=== PATIENT | male | born 1970 | race Caucasian/White ===

== ENCOUNTER 2021-02-09 21:33 | Inpatient (IN) | payer OTHER, MEDICAID ==
[~2021-02-09] VITALS: Ht 198.1 cm; Wt 158.8 kg
--- NOTE | ~2021-02-09 | EKG ---
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 : 1970 Requested By: Kristofer Alfaro Order Number: [id number] Reading MD: Measurements Intervals [place] Rate: 145 P: [place]: QRS: 53 QRSD: 116 T: -66 QT: 338 QTc: 525 Interpretive Statements Atrial fibrillation Nonspecific intraventricular conduction delay Borderline low voltage, extremity leads Borderline ST depression, diffuse leads Compared to ECG 02/09/2021 21:47:05 ST (T wave) deviation now present Sinus tachycardia no longer present Ventricular premature complex(es) no longer present [email or web address] By: 3 3 Epiphany Epiphany, /JOHANA
--- NOTE | ~2021-02-09 | EMS ---
[place] [address] EMS Patient Care Report Name: NEGAR BIRCH Room: [place] [address] ADM IN .R.#: [id number] Admission: 02/09/21 Attend Phys: Alyssa Quijano MD Discharge: Date of : 72 Report #: [id number] THIS REPORT FOR: //name// Report Transmitted: 02/09/2021 22:15 EMS Care Summary [facility] Incident [id number] @ 02/09/2021 20:39 Incident Location [address] [place] [address] Patient NEGAR BICRH Male, 50 Years 1970 Patient Address [address] [place] [address] Patient History Alcohol Abuse, Patient Allergies No known allergies, Patient Medications None Reported, Chief Complaint Sepsis Disposition Transported Lights/[place] Dispatch Reason Sick Person Transported To [facility] Narrative [facility] was dispatched for a 50 year old male conscious and breathing possibly having a stroke. Med 1 responds to the [place] [address] EMS Patient Care Report Name: NEGAR BIRCH Room: [place] [address] ADM IN M.Josephine.#: [id number] Admission: 02/09/21 Attend Phys: Alyssa Quijano MD Discharge: Date of : 72 Report #: [id number] sirens. Arrival at the scene EMS personnel dismount the ambulance with the stretcher, medical bag and monitor. Patient is located inside the residence sitting down in bed. Patient acknowledges EMS presence is GCS 14 AAOx3. Patient has a patent airway is tachypneic with strong irregular radial pulses. Skin is pale warm and dry. Patient is confused and hallucinating. VS and Glucose check are obtained and Hypotension is noted. Glucose is 110mg/dL. Family advises that the last known well of the patient was approximately two days ago and that he is noted to have increased confusion and weakness. Family and patient deny any recent trauma or falls. Patient is assisted to the stair chair and secured with seatbelts. Patient is wheeled outside to the stretcher and secured in the fowlers position using seatbelts and rails. Patient is wheeled into the ambulance and placed on the monitor to obtain VS and 12 lead ECG. 12 lead shows Atrial Fibrillation with RVR with multiple PVC's. Patient is placed on Oxygen via NRB at 12LPM. ETCO2 is obtained and results are 15mmhg. IV access is established in the left antecubital region using a 18g IV and secured with a venigard. 1000ML NS is initiated for sepsis. Patient is noted to be Jaundiced with Sclera also noted to be jaundiced. Transport is initiated to [facility] emergent using lights and sirens with a sepsis alert to the receiving facility. Assessment is conducted. Patient is GCS 14, Alert and oriented to person, time and able to conduct simple math. Patient advises that his dog is inside the ambulance and not to let the dog out of the ambulance. Patient has a patent airway and is tachypneic with RR of 42 ETCO2 of 17mmhg and tachycardia noted AFIB with RVR and PVC's. Skin is Jaundiced, pale cool and dry. HEENT are WNL. Pupils are PERRL. Trachea is midline with no JVD. Chest wall is stable and intact with symmetrical rise and fall. Lung sounds are clear and equal. Abdomen is soft and nontender with no distention or rigidity noted. Pelvis is stable and intact. CMSX4 present. Stroke scale conducted is negative. Arrival at the receiving facility patient is offloaded and taken to ED room 1. Patient is moved from the stretcher to the bed using the linen. RN is given report and transfer of care is completed. Patient is unable to sign due to AMS and weakness. Med 1 returns to service. Initial Vitals @20:46P: 114,R: 38,BP: 98/56,Pain: 0/10,GCS: 14,Glucose: 110,SpO2: 90,Revised Trauma: 11, @21:07P: 111,R: 42,BP: 146/86,GCS: 14,EtCO2: 16,SpO2: 97,Revised Trauma: 11, @21:16P: 111,R: 41,BP: 125/69,Pain: 0/10,GCS: 14,EtCO2: 15,Revised Trauma: 11,MT Suspected: false @20:59P: 115,R: 48,BP: 129/69,GCS: 14,EtCO2: 16,SpO2: 95,Revised Trauma: 11,MT Suspected: false Impression [address] [address] EMS Patient Care Report Name: NEGAR BIRCH Room: [place] [address] ADM IN ..#: [id number] Admission: 02/09/21 Attend Phys: Alyssa Quijano MD Discharge: Date of : 72 Report #: [id number] Sepsis/Septicemia Procedures @20:50Oxygen FlowRate: 12 Device: Non Re-breather Mask (NRB) Response: UnchangedSucceeded@20:50Normal Saline (.9% NaCl) 1000cc (18 ga) Site: Antecubital-LeftResponse: UnchangedSucceeded@20:55ALS AssessmentResponse: UnchangedSucceeded@21:10Sepsis NotificationResponse: Unchanged@21:0012-Lead ECGResponse: UnchangedSucceeded Timeline 20:39,Call Received 20:39,Dispatched 20:41,En Route 20:44,Initial Responder On Scene 20:44,On Scene 20:46,At Patient 20:46,BP: 98/56 M,PULSE: 114,RR: 38 R,SPO2: 90 Ox,ETCO2: ,B,PAIN: 0,GCS: 14, 20:50,Oxygen FlowRate: 12 Device: Non Re-breather Mask (NRB) Response: UnchangedSucceeded, 20:50,Normal Saline (.9% NaCl) 1000cc 18 ga Site: Antecubital-Left,Response: UnchangedSucceeded, 20:55,ALS Assessment,Response: UnchangedSucceeded, 20:59,BP: 129/69 M,PULSE: 115,RR: 48 R,SPO2: 95 Ox,ETCO2: 16 ,BG: ,PAIN: ,GCS: 14, 21:00,12-Lead ECG,Response: UnchangedSucceeded, 21:02,Depart Scene 21:07,BP: 146/86 M,PULSE: 111,RR: 42 R,SPO2: 97 Ox,ETCO2: 16 ,BG: ,PAIN: ,GCS: 14, 21:10,Sepsis Notification,Response: Unchanged 21:16,BP: 125/69 M,PULSE: 111,RR: 41 R,SPO2: Ox,ETCO2: 15 ,BG: ,PAIN: 0,GCS: 14, 21:25,At Destination 21:35,Transfer Patient 22:03,Call Closed 22:03,In District Disclaimer v1.1 Copyright 2020 [employer] This EMS Care Summary contains data elements from the applicable legal record (which may be displayed differently). It is designed to provide pertinent information for the following purposes: continuity of care, clinical quality, and state data reporting. The complete legal record is available to ED staff and administrators of the receiving hospital in [employer]'s Patient Tracker. All data is provided "as is."
--- NOTE | ~2021-02-09 | EMS ---
[place] [address] EMS Patient Care Report Name: NEGAR BIRCH Room: [place] [address] ADM IN .R.#: [id number] Admission: 02/09/21 Attend Phys: Alyssa Qujiano MD Discharge: Date of : 72 Report #: [id number] THIS REPORT FOR: //name// Report Transmitted: 02/09/2021 23:15 EMS Care Summary [facility] Incident [id number] @ 02/09/2021 20:39 Incident Location [address] [place] [address] Patient NEGAR BIRCH Male, 50 Years 1970 Patient Address [address] [place] [address] Patient History Alcohol Abuse, Patient Allergies No known allergies, Patient Medications None Reported, Chief Complaint Sepsis Disposition Transported Lights/[place] Dispatch Reason Sick Person Transported To [facility] Narrative [facility] was dispatched for a 50 year old male conscious and breathing possibly having a stroke. Med 1 responds to the scene emergent [place] [address] EMS Patient Care Report Name: NEGAR BIRCH Room: [place] [address] ADM IN M.Josephine.#: [id number] Admission: 02/09/21 Attend Phys: Alyssa Quijano MD Discharge: Date of : 72 Report #: [id number] sirens. Arrival at the scene EMS personnel dismount the ambulance with the stretcher, medical bag and monitor. Patient is located inside the residence sitting down in bed. Patient acknowledges EMS presence is GCS 14 AAOx3. Patient has a patent airway is tachypneic with strong irregular radial pulses. Skin is pale warm and dry. Patient is confused and hallucinating. VS and Glucose check are obtained and Hypotension is noted. Glucose is 110mg/dL. Family advises that the last known well of the patient was approximately two days ago and that he is noted to have increased confusion and weakness. Family and patient deny any recent trauma or falls. Patient is assisted to the stair chair and secured with seatbelts. Patient is wheeled outside to the stretcher and secured in the fowlers position using seatbelts and rails. Patient is wheeled into the ambulance and placed on the monitor to obtain VS and 12 lead ECG. 12 lead shows Atrial Fibrillation with RVR with multiple PVC's. Patient is placed on Oxygen via NRB at 12LPM. ETCO2 is obtained and results are 15mmhg. IV access is established in the left antecubital region using a 18g IV and secured with a venigard. 1000ML NS is initiated for sepsis. Patient is noted to be Jaundiced with Sclera also noted to be jaundiced. Transport is initiated to [facility] emergent using lights and sirens with a sepsis alert to the receiving facility. Assessment is conducted. Patient is GCS 14, Alert and oriented to person, time and able to conduct simple math. Patient advises that his dog is inside the ambulance and not to let the dog out of the ambulance. Patient has a patent airway and is tachypneic with RR of 42 ETCO2 of 17mmhg and tachycardia noted AFIB with RVR and PVC's. Skin is Jaundiced, pale cool and dry. HEENT are WNL. Pupils are PERRL. Trachea is midline with no JVD. Chest wall is stable and intact with symmetrical rise and fall. Lung sounds are clear and equal. Abdomen is soft and nontender with no distention or rigidity noted. Pelvis is stable and intact. CMSX4 present. Stroke scale conducted is negative. Arrival at the receiving facility patient is offloaded and taken to ED room 1. Patient is moved from the stretcher to the bed using the linen. RN is given report and transfer of care is completed. Patient is unable to sign due to AMS and weakness. Med 1 returns to service. Initial Vitals @20:46P: 114,R: 38,BP: 98/56,Pain: 0/10,GCS: 14,Glucose: 110,SpO2: 90,Revised Trauma: 11, @21:07P: 111,R: 42,BP: 146/86,GCS: 14,EtCO2: 16,SpO2: 97,Revised Trauma: 11, @21:16P: 111,R: 41,BP: 125/69,Pain: 0/10,GCS: 14,EtCO2: 15,Revised Trauma: 11,MO Suspected: false @20:59P: 115,R: 48,BP: 129/69,GCS: 14,EtCO2: 16,SpO2: 95,Revised Trauma: 11,MO Suspected: false Impression [address] [address] EMS Patient Care Report Name: NEGAR BIRCH Room: [place] [address] ADM IN ..#: [id number] Admission: 02/09/21 Attend Phys: Alyssa Quijano MD Discharge: Date of : 72 Report #: [id number] Sepsis/Septicemia Procedures @20:50Oxygen FlowRate: 12 Device: Non Re-breather Mask (NRB) Response: UnchangedSucceeded@20:50Normal Saline (.9% NaCl) 1000cc (18 ga) Site: Antecubital-LeftResponse: UnchangedSucceeded@20:55ALS AssessmentResponse: UnchangedSucceeded@21:10Sepsis NotificationResponse: Unchanged@21:0012-Lead ECGResponse: UnchangedSucceeded Timeline 20:39,Call Received 20:39,Dispatched 20:41,En Route 20:44,Initial Responder On Scene 20:44,On Scene 20:46,At Patient 20:46,BP: 98/56 M,PULSE: 114,RR: 38 R,SPO2: 90 Ox,ETCO2: ,B,PAIN: 0,GCS: 14, 20:50,Oxygen FlowRate: 12 Device: Non Re-breather Mask (NRB) Response: UnchangedSucceeded, 20:50,Normal Saline (.9% NaCl) 1000cc 18 ga Site: Antecubital-Left,Response: UnchangedSucceeded, 20:55,ALS Assessment,Response: UnchangedSucceeded, 20:59,BP: 129/69 M,PULSE: 115,RR: 48 R,SPO2: 95 Ox,ETCO2: 16 ,BG: ,PAIN: ,GCS: 14, 21:00,12-Lead ECG,Response: UnchangedSucceeded, 21:02,Depart Scene 21:07,BP: 146/86 M,PULSE: 111,RR: 42 R,SPO2: 97 Ox,ETCO2: 16 ,BG: ,PAIN: ,GCS: 14, 21:10,Sepsis Notification,Response: Unchanged 21:16,BP: 125/69 M,PULSE: 111,RR: 41 R,SPO2: Ox,ETCO2: 15 ,BG: ,PAIN: 0,GCS: 14, 21:25,At Destination 21:35,Transfer Patient 22:03,Call Closed 22:03,In District Disclaimer v1.1 Copyright 2020 [employer] This EMS Care Summary contains data elements from the applicable legal record (which may be displayed differently). It is designed to provide pertinent information for the following purposes: continuity of care, clinical quality, and state data reporting. The complete legal record is available to ED staff and administrators of the receiving hospital in [employer]'s Patient Tracker. All data is provided "as is."
[2021-02-09 21:38] VITALS: BP 146/64
[2021-02-09 22:19] LABS: HEMATOCRIT 38.4 % (42.0-52.0); HEMOGLOBIN 13.4 gm/dL (14.0-18.0); MCH 33.7 pg (26.0-34.0); MCHC 34.8 g/dL (28.0-37.0); MCV 96.8 fL (80.0-100.0); MPV 10.3 fl. (7.2-11.1); NUCLEATED RBCS 0 /100WBC; RBC 3.96 mil/uL (4.50-6.00); RDW-CV 14.8 % (10.5-14.5); WBC 17.9 thou/uL (4.0-11.0)
[2021-02-09 22:25] LABS: BE -10.8 mmol/L (-2 to +3); PCO2 23.7 mmHg (35.0-45.0); PO2 74.2 mmHg (75.0-100.0); pH 7.349 (7.340-7.450)
[2021-02-09 22:29] LABS: CALCIUM 8.2 mg/dL (8.5-10.1); CREATININE 3.7 mg/dL (0.6-1.3); POTASSIUM 3.1 mmol/L (3.5-5.1)
[2021-02-09 22:39] LABS: INR 1.6; PROTIME 16.9 Seconds (9.20-11.50)
[2021-02-09 22:40] LABS: MAGNESIUM 1.7 mg/dL (1.8-2.4); TOTAL PROTEIN 6.8 g/dL (6.4-8.2)
[2021-02-09 22:53] LABS: PLATELET COUNT* 32 thou/uL (150-400)
[2021-02-09 22:56] LABS: ABSOLUTE EOSINOPHILS 0.4 thou/uL (0.0-0.7); ABSOLUTE MONOCYTES 0.4 thou/uL (0.0-1.2); ABSOLUTE NEUTROPHILS 17.2 thou/uL (1.6-8.1); ANISOCYTOSIS Occasional; PLATELET ESTIMATE DECREASED; TOXIC GRANULATION 2+
[2021-02-09 22:57] LABS: LARGE PLATELETS FEW
[2021-02-10] VITALS (26 sets, daily range): BP systolic 58–110; BP diastolic 34–74
[2021-02-10 01:45] LABS: BE -14.2 mmol/L (-2 to +3); PCO2 40.3 mmHg (35.0-45.0); PO2 78.2 mmHg (75.0-100.0)
[2021-02-10 01:46] LABS: pH 7.156 (7.340-7.450)
[2021-02-10 02:13] LABS: URINE BLOOD 2+ (Negative); URINE CLARITY CLEAR; URINE COLOR YELLOW; URINE GLUCOSE-RANDOM NEGATIVE (Negative); URINE KETONES TRACE (Negative); URINE LEUKOCYTES-REFLEX NEGATIVE (Negative); URINE NITRITE-REFLEX NEGATIVE (Negative); URINE PROTEIN 1+ (Negative); URINE SPECIFIC GRAVITY 1.025 (1.005-1.030)
[2021-02-10 02:14] LABS: ICTOTEST (BILI CONFIRMATORY) Positive (Negative); URINE BILIRUBIN 2+ (Negative)
[2021-02-10 02:36] LABS: AMORPHOUS URATES Moderate /LPF (None Seen); BACTERIA-REFLEX >30 Many /HPF (None Seen); COARSE GRANULAR CASTS 0-3 Few /LPF (None Seen); FINE GRANULAR CASTS 0-3 Few /LPF (None Seen); MUCUS 4-6 Moderate strn/LPF (None Seen); SQUAMOUS 0-3 Few /LPF (0-3); URINE WBC-REFLEX 6-15 Few /HPF (0-5)
--- NOTE | 2021-02-10 08:39 | EKG ---
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1970 Requested By: Yessenia Lindsay Order Number: [id number] MD: Kristofer Alfaro Measurements Intervals [place] Rate: 110 P: 52 SD: 148 QRS: 47 QRSD: 114 T: 1 QT: 369 QTc: 500 Interpretive Statements Sinus tachycardia Ventricular premature complex Borderline intraventricular conduction delay Borderline prolonged QT interval Baseline wander in lead(s) I,V6 No previous ECG available for comparison Electronically Signed On 02-10-2021 8:39:17 CDT by Kristofer Alfaro [email or web address] <ELECTRONICALLY SIGNED> By: Kristofer Alfaro MD, [facility] 02/10/21 0839 2147 2147 Kristofer Alfaro MD, [facility] /EPI
[2021-02-10 09:09] LABS: BE -19.1 mmol/L (-2 to +3); PCO2 47.5 mmHg (35.0-45.0); PO2 88.2 mmHg (75.0-100.0)
[2021-02-10 09:11] LABS: pH 7.014 (7.340-7.450)
--- NOTE | 2021-02-10 09:15 | NUR ---
PT TO BE NOTED IN A. FIB, EKG OBTAINED, DR. ALLRED NOTIFIED
--- NOTE | 2021-02-10 09:51 | NUR ---
ABG RESULTS TO DR. YOO
[2021-02-10 11:00] LABS: ABSOLUTE BASOPHILS 0.1 thou/uL (0.0-0.2); ABSOLUTE EOSINOPHILS 4.3 thou/uL (0.0-0.7); ABSOLUTE LYMPHOCYTES 0.4 thou/uL (0.8-5.3); ABSOLUTE MONOCYTES 0.6 thou/uL (0.0-1.2); ABSOLUTE NEUTROPHILS 22.1 thou/uL (1.6-8.1); BASOPHILS 0.3 %; EOSINOPHILS 15.7 %; HEMATOCRIT 39.1 % (42.0-52.0); HEMOGLOBIN 13.1 gm/dL (14.0-18.0); LYMPHOCYTES 1.4 %; MCH 33.5 pg (26.0-34.0); MCHC 33.5 g/dL (28.0-37.0); MCV 99.9 fL (80.0-100.0); MONOCYTES 2.2 %; MPV 11.3 fl. (7.2-11.1); NUCLEATED RBCS 0 /100WBC; POLYS 80.4 %; RBC 3.91 mil/uL (4.50-6.00); WBC 27.5 thou/uL (4.0-11.0)
[2021-02-10 11:04] LABS: PLATELET COUNT* 30 thou/uL (150-400)
[2021-02-10 11:09] LABS: CALCIUM 7.8 mg/dL (8.5-10.1); CREATININE 3.9 mg/dL (0.6-1.3); POTASSIUM 3.7 mmol/L (3.5-5.1)
[2021-02-10 11:13] LABS: ALBUMIN 1.7 g/dL (3.4-5.0); TOTAL BILIRUBIN 8.8 mg/dL (<0.1-1.0); TOTAL PROTEIN 6.3 g/dL (6.4-8.2)
[2021-02-10 12:37] LABS: BE -19.2 mmol/L (-2 to +3); PCO2 40.5 mmHg (35.0-45.0); PO2 120.3 mmHg (75.0-100.0)
[2021-02-10 12:43] LABS: pH 7.045 (7.340-7.450)
--- NOTE | 2021-02-10 13:25 | 2DMMODE ---
[place] [address] 2 D/M-MODE ECHOCARDIOGRAM Name: EYALNEGAR ODIN Room: [place] [address] ADM IN .Josephine.#: [id number] Admission: 02/09/21 Attend Phys: Alyssa Quijano, Discharge: Date of : 72 Date of Service: 02/10/21 1325 Report #: [id number] THIS REPORT FOR: cc: FAM - No family physician/PCP FAM - No family physician/PCP Kristofer Alfaro MD [facility] ~ APPROVED REPORT Study performed: 02/10/2021 11:00:52 EXAM: Comprehensive 2D, Doppler, and color-flow Echocardiogram Patient Location: In-Patient Room #: ER Status: routine BSA: 2.86 HR: 153 bpm BP: 90/51 mmHg Rhythm: Atrial Fibrillation Other Information Study Quality: Adequate Technically limited study due to body habitus, inability to position patient, patient on ventilator. Indications Sepsis Septic Shock 2D Dimensions IVSd: 13.93 (7-11mm) LVOT Diam: 20.47 (18-24mm) LVDd: 51.11 mm PWd: 13.21 (7-11mm) Ascending Ao: 34.93 (22-36mm) LVDs: 28.56 (25-40mm) Aortic Root: 32.31 mm Aortic Valve AoV Peak Bkea.: 1.98 m/s AO Peak Gr.: 15.68 mmHg AO Mean Gr.: 9.24 mmHg AO V2 VTI: 24.49 cm Pulmonary Valve PV Peak Beka.: 1.68 m/s PV Peak Gr.: 11.30 [place] [address] 2 D/M-MODE ECHOCARDIOGRAM Name: NEGAR BIRCH Room: [address] IN [facility]#: [id number] Admission: 02/09/21 Attend Phys: Alyssa Quijano, Discharge: Date of : 72 Date of Service: 02/10/21 1325 Report #: [id number] Left Ventricle The left ventricle is normal size. There is normal LV segmental wall motion. Mild concentric left ventricular hypertrophy. The left ventricular systolic function is normal. The left ventricular ejection fraction is within the normal range. LVEF is 65-70%. This study is not technically sufficient to allow evaluation of the LV diastolic function due to atrial fibrillation. Right Ventricle The right ventricle is normal size. The right ventricular systolic function is normal. Atria The left atrium size is normal. The right atrium size is normal. Aortic Valve The aortic valve is normal in structure. No aortic regurgitation is present. There is no aortic valvular stenosis. Mitral Valve The mitral valve is normal in structure. There is no mitral valve regurgitation noted. No evidence of mitral valve stenosis. Tricuspid Valve The tricuspid valve is normal in structure. Unable to assess PA pressure. Trace tricuspid regurgitation. Pulmonic Valve Pulmonic valve is not well visualized. There is no pulmonic valvular regurgitation. Great Vessels The aortic root is normal in size. IVC is normal in size and collapses >50% with inspiration. Pericardium There is no pericardial effusion. <Conclusion> Mild concentric left ventricular hypertrophy. LVEF is 65-70%. <ELECTRONICALLY SIGNED> By: Kristofer Alfaro MD, [facility] 02/10/21 1325 24 24 Kristofer Alfaro MD, FACC /INF
--- NOTE | 2021-02-10 14:09 | NUR ---
YULIANA SPK WITH PT , ELLEN TO COMPLETE ASSESSMENT. PT LIVES IN APT, WITH 2 STEPS TO ENTER. 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 PT USED NO DMES, O2, ETC. PT HAS NO HX WITH INPT DETOX, SNF OR HH. PT WAS INDICATED PT HAS HX OF ETOH ADDICATION. MANOLO HUGHES ON THE VISITOR'S POLICY. PER ELLEN THERE IS NO DPOA APPOINTED. YULIANA WAS INFORMED BY CM DIRECTOR PT WILL NEED TO BE TRANSFER D/T NO ICU BEDS AVAIL. YULIANA INFORMED [facility], WHO IS AGREEABLE TO TRANFER.
[2021-02-10 14:33] LABS: PCO2 41.7 mmHg (35.0-45.0); PO2 114.6 mmHg (75.0-100.0)
--- NOTE | 2021-02-10 14:35 | EKG ---
[place] [address] ELECTROCARDIOGRAM REPORT Name: NEGAR BIRCH Room: [place] [address] 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 <ELECTRONICALLY SIGNED> By: Kristofer Alfaro MD, [facility] 02/10/21 1434 3 09 Kristofer Alfaro MD, [facility] /EPI
[2021-02-10 14:38] LABS: pH 6.996 (7.340-7.450)
--- NOTE | 2021-02-10 14:56 | CON ---
[address] [address] CONSULTATION Name: NEGAR BIRCH Room: [place] [address] ADM IN M.R.#: [id number] Admission: 02/09/21 Attend Phys: Alyssa Quijano MD Discharge: Date of : 72 Report #: [id number] THIS REPORT FOR: cc: FAM - No family physician/PCP FAM - No family physician/PCP Kristofer Alfaro MD [facility] ~ DATE OF CONSULTATION: 02/10/2021 HISTORY OF PRESENT ILLNESS: The patient is a 50-year-old white male who I was asked to see in the Emergency Room today after he was noted to be in atrial fibrillation. The history is obtained from the current chart. Unfortunately, there are no old records. There are no family members available. The patient is currently sedated and on the ventilator. According to the records, the patient was brought to the Emergency Room last night by paramedics. The patient has a history of alcohol abuse. He has not seen a doctor for several years. Recently, he was drinking excessive amounts of alcohol. He complained of shortness of breath, nausea, and no appetite. He has been weak and confused. Yesterday, the patient could not stand up. She called EMS and was brought here to [place] for further evaluation and treatment. PAST MEDICAL HISTORY: He has chronic back pain. He is on no medications. ALLERGIES: He has no known drug allergies. SOCIAL HISTORY: He is . He drinks excessive alcohol, smoke cigarettes. REVIEW OF SYSTEMS: There is apparently no history of stroke, liver disease, kidney disease, cancer, psychiatric illness. PHYSICAL EXAMINATION: GENERAL: Revealed obese, middle-aged male, on the ventilator. He was unresponsive. VITAL SIGNS: Blood pressure is currently 90 systolic, on IV pressors, pulse 130 and irregular. HEENT: Eyes anicteric. Conjunctivae are pink. Mucous membranes appear moist. NECK: Veins not appear distended. CHEST: Clear to auscultation. HEART: Irregular, tachycardia. ABDOMEN: Obese. EXTREMITIES: Had trace edema. SKIN: Cool and dry. NEUROLOGIC: Nonfocal. LABORATORY DATA: His ECG when he was admitted last night showed a sinus rhythm, occasional PVC. ECG this morning shows atrial [place] [address] CONSULTATION Name: NEGAR BIRCH Room: [address] IN [facility]#: [id number] Admission: 02/09/21 Attend Phys: Alyssa Quijano MD Discharge: Date of : 72 Report #: [id number] ventricular response rate. Workup so far, the patient had a portable chest x-ray on admission last night that showed cardiomegaly, mild congestion, some atelectasis. CT scan of the head showed no acute abnormalities. LABORATORY WORK: Sodium 134, BUN 80, creatinine 3.9, SGOT 244. Bilirubin 8.8, alkaline phosphatase is 194. Albumin 1.7. High sensitivity troponin is 414. BNP 4415. INR is elevated at 1.6. White blood cell count 27,000, hemoglobin 13.1, platelet count 30,000. IMPRESSION AND RECOMMENDATIONS: 1. Atrial fibrillation. Suspect secondary to alcohol intoxication. Recommend echocardiogram. Because of low blood pressure. I would get IV digoxin to slow the ventricular response rate. 2. Hypertension. Suspect sepsis. The patient on pressors. 3. Respiratory failure. The patient is currently intubated. I would check echocardiogram. 4. Alcohol abuse. 5. Tobacco abuse. 6. Acute kidney injury. 7. Liver failure. 8. Borderline troponin. No evidence of acute myocardial infarction. 9. Thrombocytopenia. Suspect secondary to alcohol abuse. <ELECTRONICALLY SIGNED> By: Kristofer Alfaro MD, FACC 02/10/21 1456 1151 [id number] Alfaro MD, FACC /nt
--- NOTE | 2021-02-10 14:56 | CON ---
[address] [address] CONSULTATION Name: NEGAR BIRCH Room: [place] [address] ADM IN M.R.#: [id number] Admission: 02/09/21 Attend Phys: Alyssa Quijano MD Discharge: Date of : 72 Report #: [id number] THIS REPORT FOR: cc: FAM - No family physician/PCP FAM - No family physician/PCP Kristofer Alfaro MD [facility] ~ DATE OF CONSULTATION: 02/09/2021 INCOMPLETE DICTATION CARDIOLOGY CONSULTATION HISTORY OF PRESENT ILLNESS: The patient is a 50-year-old white male who I was asked to see in the Emergency room today after he was noted to be in atrial fibrillation. DICTATION ENDS HERE AT THIS POINT <ELECTRONICALLY SIGNED> By: Kristofer Alfaro MD, FACC 02/10/21 1456 1143 [id number] Alfaro MD, FACLeonard /nt
--- NOTE | 2021-02-10 15:06 | NUR ---
MEDICATIONS CONSISTENTLY BEING TITRATED
[2021-02-10 15:48] LABS: HEMATOCRIT 39.3 % (42.0-52.0); HEMOGLOBIN 12.9 gm/dL (14.0-18.0); MCH 33.3 pg (26.0-34.0); MCHC 32.9 g/dL (28.0-37.0); MCV 101.4 fL (80.0-100.0); MPV 10.1 fl. (7.2-11.1); NUCLEATED RBCS 0 /100WBC; RBC 3.88 mil/uL (4.50-6.00); RDW-CV 15.7 % (10.5-14.5); WBC 31.3 thou/uL (4.0-11.0)
[2021-02-10 15:49] LABS: CALCIUM 7.6 mg/dL (8.5-10.1); MAGNESIUM 3.3 mg/dL (1.8-2.4); POTASSIUM 4.3 mmol/L (3.5-5.1)
[2021-02-10 15:54] LABS: PLATELET COUNT* 25 thou/uL (150-400)
[2021-02-10 16:00] LABS: APTT 44.7 Seconds (25.0-31.3); PROTIME 20.3 Seconds (9.20-11.50)
[2021-02-10 16:42] LABS: BE -22.4 mmol/L (-2 to +3); PCO2 34.5 mmHg (35.0-45.0)
[2021-02-10 16:47] LABS: ABSOLUTE LYMPHOCYTES 2.2 thou/uL (0.8-5.3); ABSOLUTE MONOCYTES 3.1 thou/uL (0.0-1.2); LARGE PLATELETS FEW; PLATELET ESTIMATE DECREASED; TOXIC GRANULATION 2+
[2021-02-10 16:47] LABS: pH 6.994 (7.340-7.450)
[2021-02-11] VITALS (19 sets, daily range): BP systolic 30–56; BP diastolic 23–39
--- NOTE | 2021-02-11 00:10 | NUR ---
PATIENT STARTED ON CRRT AT 2144. PATIENT HAS CONTINUED TO DECOMPENSATE THROUGHOUT THE SHIFT. CALLED AND SPOKE WITH , BROOK, AND UPDATED ON PATIENT'S CONDITION. TOLD HER TO COME TO THE HOSPITAL AND BE AT THE PATIENT'S BEDSIDE. CURRENTLY AT BEDSIDE. PATIENT CONTINUING TO DECOMPENSATE. AT THIS TIME, STILL WISHES FOR ALL MEASURES TO BE TAKEN INCLUDING RESUSCITATIVE MEASURES.
--- NOTE | 2021-02-11 00:27 | NUR ---
PATIENT CONITNUING TO DECLINE. HAS DECIDED TO MAKE THE PATIENT A DNR, CONFIRMED BY DIANELYS JEFFREY AND WINSTON Hernandez RN. ORDER APPROVED BY DR. ALLRED
[2021-02-11 02:16] LABS: ABSOLUTE BASOPHILS 0.1 thou/uL (0.0-0.2); ABSOLUTE EOSINOPHILS 3.4 thou/uL (0.0-0.7); ABSOLUTE LYMPHOCYTES 0.6 thou/uL (0.8-5.3); ABSOLUTE MONOCYTES 1.1 thou/uL (0.0-1.2); ABSOLUTE NEUTROPHILS 22.5 thou/uL (1.6-8.1); BASOPHILS 0.4 %; EOSINOPHILS 12.3 %; HEMATOCRIT 38.7 % (42.0-52.0); HEMOGLOBIN 12.6 gm/dL (14.0-18.0); LYMPHOCYTES 2.2 %; MCH 33.8 pg (26.0-34.0); MCHC 32.4 g/dL (28.0-37.0); MCV 104.3 fL (80.0-100.0); MONOCYTES 3.9 %; MPV 9.3 fl. (7.2-11.1); NUCLEATED RBCS 0 /100WBC; POLYS 81.2 %; RBC 3.71 mil/uL (4.50-6.00); RDW-CV 16.2 % (10.5-14.5); WBC 27.7 thou/uL (4.0-11.0)
[2021-02-11 02:22] LABS: PLATELET COUNT* 14 thou/uL (150-400)
[2021-02-11 02:39] LABS: ALBUMIN 2.4 g/dL (3.4-5.0); CALCIUM 7.1 mg/dL (8.5-10.1); MAGNESIUM 3.2 mg/dL (1.8-2.4); PHOSPHORUS* 10.4 mg/dL (2.5-4.9); TOTAL BILIRUBIN 10.3 mg/dL (<0.1-1.0); TOTAL PROTEIN 6.2 g/dL (6.4-8.2)
[2021-02-11 02:43] LABS: POTASSIUM 5.4 mmol/L (3.5-5.1)
--- NOTE | 2021-02-11 04:01 | NUR ---
this proposal manager writer witnessed all family members present in room vocally consent to withdrawel of care at this time. each person voiced the words "I agree " when asked individually, " do you agree to withdrawing care"
--- NOTE | 2021-02-11 04:03 | NUR ---
PATIENT'S EXPRESSED DESIRE TO WITHDRAW CARE ON THE PATIENT. FAMILY MEMBERS ARRIVE TO THE HOSPITAL. FAMILY IN ATTENDANCE INCLUDE THE PATIENT'S , 2 SONS, NEICE, AND DAUGHTER IN LAW. PATIENT DOES NOT HAVE DPOA PAPERWORK ON FILE. FAMILY MET SEPARATE IN THE PATIENT'S ROOM AWAY FROM NURSING STAFF TO DISCUSS THE OPTION TO WITHDRAW CARE FROM THE PATIENT. THIS ENROLLMENT CLERK, ALONG WITH RN WINSTON RIVERA, VERIFIED WITH EACH FAMILY MEMBER THAT THEY WERE IN AGREEMENT TO WITHDRAW CARE FROM THE PATIENT WHEN INDIVIDUALLY ASKED. ALL FAMILY MEMBERS ARE IN AGREEMENT TO WITHDRAW CARE. NURSING SCOURING MACHINE OPERATOR NILSON UMANZOR CONFIRMED WITH THIS ENROLLMENT CLERK THAT THE PATIENT'S IS LEGALLY TO THE PATIENT.
--- NOTE | 2021-02-11 07:20 | NUR ---
PATIENT AT 0435. PRONOUNCED BY DIANELYS JEFFREY AND RASHEEDA JEFFREY. FAMILY HAS NOT DECIDED ON A HOME FOR THE PATIENT OF THIS TIME.
--- NOTE | 2021-02-13 09:43 | NUR ---
Patient recorded in log 02/13/2021.
[2021-02-13 11:07] LABS: GLOMERULR BASEM MEMBRN AB 3 units (0-20)
[2021-02-13 19:06] LABS: ANA INTERPRETATION Negative (())
--- NOTE | 2021-02-13 20:12 | CON ---
[address] [address] CONSULTATION Name: NEGAR BIRCH ODIN Room: [address] IN M.R.#: [id number] Admission: 02/09/21 Attend Phys: Alyssa Quijano MD Discharge: 02/11/21 Date of : 72 Report #: [id number] THIS REPORT FOR: cc: JESSI - No family physician/PCP FAM - No family physician/PCP Ubaldo Lambert MD ~ DATE OF CONSULTATION: 02/10/2021 REQUESTING PHYSICIAN: Consult has been requested by Dr. Tanner Noland. HISTORY OF PRESENT ILLNESS: This is a 50-year-old gentleman. He is already endotracheally intubated and therefore, information is limited. Apparently, he does have a history of heavy alcohol intake. He also does have a history of smoking. He does have morbid obesity with body mass index of 40.4. The patient now presented to the Emergency Room with altered mental status. He has been short of breath, reported to have been feeling weak. He needed to be endotracheally intubated for respiratory distress. Also, he is on high dose pressors to maintain blood pressure. He is markedly hypotensive. We are maintaining O2 saturation with 100% FiO2 and a 5 of PEEP. He does appear jaundiced; however, is profoundly acidotic despite having received significant amount of bicarbs. The patient also is in AFib with RVR and remains tachycardic. He is on the ventilator and therefore is unable to provide further history or review of systems: There is a wound on his left foot. PAST MEDICAL HISTORY: Chronic back pain. Further details not available. SOCIAL HISTORY: Heavy alcohol intake, smokes cigarettes. Information regarding drug use is not available. ALLERGIES: No known drug allergies. CURRENT MEDICATIONS: List in [employer] reviewed. HOME MEDICATIONS: Unknown. FAMILY HISTORY: Unknown. ALLERGIES: No known drug allergies. PHYSICAL EXAMINATION: GENERAL: He is sedated with Versed and fentanyl. He is on 100% FiO2 with 550 tidal volume, rate is set at 15. His breathing is 27. He is tachycardic. VITAL SIGNS: Heart rate is above 140. Blood pressure is 100/34. He is saturating 95% with the current ventilator settings. He has a low-grade fever at 37.6. Body mass index is 40. [place] [address] CONSULTATION Name: NEGAR BIRCH ODIN Room: [address]#: [id number] Admission: 02/09/21 Attend Phys: Alyssa Quijano MD Discharge: 02/11/21 Date of : 72 Report #: [id number] HEENT: Head is normocephalic and atraumatic. He does appear jaundiced. Pupils are bilaterally equal. Endotracheal tube is in place. NECK: Does not show raised JVP, asymmetry, mass or lymph nodes. CHEST: Symmetrical expansion on inspection and palpation. On auscultation, breath sounds are bilaterally equal. I do not hear any added sounds. HEART: Irregular, tachycardia noted. ABDOMEN: Mildly distended, nontender. EXTREMITIES: Lower extremities show 1+ edema bilaterally. There are some chronic skin changes noted as well. There is no obvious calf tenderness. Wound on the left foot. NEUROLOGIC: No focal deficit identified; however, limited due to sedation. DIAGNOSTIC DATA: The patient's lab work as well as chest x-ray which does show extensive bilateral infiltrates in [employer] reviewed. ASSESSMENT AND PLAN: 1. Acute hypoxemic respiratory failure. I increased his tidal volume to 650, which is around 7 mL per kg, will follow response. If his blood pressure improves, then we will consider increasing PEEP later on, otherwise keep current PEEP. Continue Versed and fentanyl for sedation. 2. Septic shock/pulmonary infiltrates/foot wound. More cultures and serologies are ordered. The Infectious Disease Service is on the case and I would therefore defer antibiotics to Infectious Disease. Considering that he is in atrial fibrillation, I started phenylephrine and we are trying to taper down norepinephrine. Unfortunately, he currently is needing a large dose of norepinephrine still. If this remains the case, then I will consider adding vasopressin in order to be able to decrease norepinephrine. 3. Acute renal failure with severe metabolic acidosis. I discussed with Dr. Savannah Aguilar. He is already on a bicarbonate drip and has had bicarbonate earlier. As recommended by Dr. Savannah Aguilar, I went ahead and ordered 2 amps of bicarbonate with subsequently repeat ABGs. He may need CRRT if he fails to improve. 4. Smoking/suspected chronic obstructive pulmonary disease. Since he is requiring 100% FiO2, I did go ahead and order Solu-Medrol. Once his heart rate is better, we will start with nebulized bronchodilators as well. 5. Atrial fibrillation. The Cardiology Service is on the case. 6. Alcoholism/elevated LFTs. These are noted. We will give him thiamine and folate as well. We will watch for alcohol withdrawal if later on we are able to wean him. 7. Thrombocytopenia, unclear whether old or new. 8. Edema of lower extremities. We will also do a venous Doppler. If this is negative, start sequential compression devices for deep venous thrombosis prophylaxis. We will not give subcutaneous heparin due to very low platelet count. 9. Mild hyperglycemia, on insulin sliding scale. [facility] [address] [place] [address] CONSULTATION Name: NEGAR BIRCH Room: [address] IN ..#: [id number] Admission: 02/09/21 Attend Phys: Alyssa Quijano MD Discharge: 02/11/21 Date of : 72 Report #: [id number] 10. Gastrointestinal prophylaxis, Protonix. The patient is critically ill at this time. Total time spent providing critical care to this patient today exceeds 50 minutes. <ELECTRONICALLY SIGNED> By: Ubaldo Lambert MD 02/13/212011 [id number] Lambert MD /nt
== END 2021-02-11 04:35 | DRG 871 ==
LOC: M.ERS 21:33 → M.TBA-ER 23:12 → M.ICU 02-10 18:32 → M.ORTHSURG 02-11 07:02 → M.ICU 02-11 07:02
PROVIDERS: Emergency Medicine; Internal Medicine; Internal Medicine Cardiovascular Disease; Internal Medicine Critical Care Medicine; Internal Medicine Nephrology; ADMIT Internal Medicine; ATTEND Internal Medicine
PROC: 5A1935Z Respiratory Ventilation, Less than 24 Consecutive Hours (ICD-10-PCS; principal; 2021-02-10)
PROC: 02HV33Z Insertion of Infusion Device into Superior Vena Cava, Percutaneous Approach (ICD-10-PCS; principal; 2021-02-10)
PROC: B548ZZA Ultrasonography of Superior Vena Cava, Guidance (ICD-10-PCS; principal; 2021-02-10)
PROC: 0BH17EZ Insertion of Endotracheal Airway into Trachea, Via Natural or Artificial Opening (ICD-10-PCS; principal; 2021-02-10)
PROC: 5A09357 Assistance with Respiratory Ventilation, Less than 24 Consecutive Hours, Continuous Positive Airway Pressure (ICD-10-PCS; principal; 2021-02-10)
DX: A41.89 Other specified sepsis (principal); N17.0 Acute kidney failure with tubular necrosis; R65.21 Severe sepsis with septic shock; J96.01 Acute respiratory failure with hypoxia; K76.7 Hepatorenal syndrome; I50.31 Acute diastolic (congestive) heart failure; E87.2 Acidosis; M62.82 Rhabdomyolysis; L97.919 Non-pressure chronic ulcer of unspecified part of right lower leg with unspecified severity; Z20.822 Contact with and (suspected) exposure to COVID-19; G89.29 Other chronic pain; M54.9 Dorsalgia, unspecified; I48.91 Unspecified atrial fibrillation; D69.6 Thrombocytopenia, unspecified; Z66 Do not resuscitate; F10.20 Alcohol dependence, uncomplicated; R73.9 Hyperglycemia, unspecified; K70.30 Alcoholic cirrhosis of liver without ascites; K70.40 Alcoholic hepatic failure without coma; I11.0 Hypertensive heart disease with heart failure; Z79.899 Other long term (current) drug therapy